=== PATIENT | male | born 1990 | race Hispanic/Latino ===

== ENCOUNTER 2021-03-14 11:24 | Emergency (ER) | payer OTHER ==
[~2021-03-14] VITALS: Ht 165.1 cm; Wt 77.1 kg
[2021-03-14 11:41] VITALS: BP 116/78
[2021-03-14] MEDS ORDERED: ACETAMINOPHEN WITH CODEINE 1 TAB TAB PO ONE (12:00)
[2021-03-14] MEDS ORDERED: ALBUTEROL INHALER 90MCG/INH IH PRN (12:00)
[2021-03-14] MEDS ORDERED: D-ME1POW16 PO (12:23)
[2021-03-14] MEDS ORDERED: ALBUHFA IH (12:23)
[2021-03-14] MEDS ORDERED: IVER3TAB PO (12:23)
[2021-03-14] MEDS ORDERED: FLUT1DIS IH (12:23)
[2021-03-14 13:05] VITALS: BP 121/69
== END 2021-03-14 13:27 | disposition home or self-care (01) ==
LOC: EDH 11:24
DX: U07.1 COVID-19 (principal); J22 Unspecified acute lower respiratory infection; Z79.51 Long term (current) use of inhaled steroids; Z79.899 Other long term (current) drug therapy
CPT/HCPCS: 71045; 87635; 99284; C9803

== ENCOUNTER 2022-10-01 12:29 | Emergency (ER) | payer MEDICAID, OTHER ==
[~2022-10-01] VITALS: Ht 162.6 cm; Wt 78.9 kg
[~2022-10-01 12:29] MED LIST: ALBUHFA IH; D-ME1POW16 PO; FLUT1DIS IH; IVER3TAB PO
[2022-10-01] MEDS ORDERED: 0.9%NACL 1000ML 1,000 ML IV ONE (13:00)
[2022-10-01] MEDS ORDERED: ONDANSETRON 4MG INJ IVP ONE (13:00)
[2022-10-01 13:13] LABS: BASOPHILS % (AUTO) 0.2 % (0.0-5.0); EOSINOPHILS % (AUTO) 0.2 % (0.0-8.0); HEMATOCRIT 43.7 % (42-54); LYMPHOCYTES % (AUTO) 12.5 % (21.0-51.0); MEAN CORPUSCULAR HEMOGLOBIN 29.9 pg (27.0-33.0); MEAN CORPUSCULAR HGB CONC 34.1 g/dL (32.0-36.0); MEAN CORPUSCULAR VOLUME 87.8 fL (79-99); MONOCYTES % (AUTO) 5.3 % (3.0-13.0); NEUTROPHILS % (AUTO) 81.4 % (40.0-77.0); PLATELET COUNT (AUTO) 194 K/uL (130-400); RED BLOOD CELL COUNT(AUTO) 4.98 MIL/uL (4.50-6.20); RED CELL DISTRIBUTION WIDTH 12.8 % (11.0-15.5); WHITE BLOOD COUNT (AUTO) 8.1 K/uL (4.8-10.8)
[2022-10-01 13:33] LABS: POTASSIUM 3.6 mmol/L (3.5-5.1)
[2022-10-01 13:37] LABS: ALBUMIN 4.1 g/dL (3.5-5.0); TOTAL PROTEIN, SERUM 8.1 g/dL (6.0-8.3)
[2022-10-01 13:59] LABS: APPEARANCE,URINE CLEAR (CLEAR); BILIRUBIN,URINE NEGATIVE (NEGATIVE); COLOR,URINE YELLOW (YELLOW); GLUCOSE, URINE (UA) NEGATIVE (NEGATIVE); KETONES,URINE NEGATIVE (NEGATIVE); LEUKOCYTE ESTERASE ,URINE NEGATIVE Leu/uL (NEGATIVE); NITRATE,URINE NEGATIVE (NEGATIVE); OCCULT BLOOD,URINE SMALL (NEGATIVE); PH,URINE 5.5 (5.0-8.0); PROTEIN,URINE 20 mg/dL (NEGATIVE); UROBILINOGEN,URINE 0.2 mg/dL (0.2-1.0)
[2022-10-01 14:02] LABS: MUCUS,URINE FEW LPF (None Seen)
[2022-10-01] MEDS ORDERED: IOHEXOL-350 75 ML VIAL IV ONE (15:06)
[2022-10-01 16:12] VITALS: BP 118/68
== END 2022-10-01 16:17 | disposition home or self-care (01) ==
LOC: EDH 12:29
DX: K80.20 Calculus of gallbladder without cholecystitis without obstruction (principal); Z79.899 Other long term (current) drug therapy
CPT/HCPCS: 99285; 74177; 96374; 96361; 80053; 85025; 83605; 81001; 36415; J7030; J2405; Q9967